=== PATIENT | female | born 1995 | race Caucasian/White ===

== ENCOUNTER 2017-06-08 09:41 | Emergency (ER) | payer OTHER ==
--- NOTE | 2017-06-08 09:48 | ED Physician Documentation ---
General Adult - HISTORIAN Historian: patient - HPI Stated Complaint: abdominal pain Chief Complaint: Abdominal Pain Onset: hours (5) Timing: still present, worse since Severity: moderate Modifying Factors: She states sitting helps some Context: Sharp pain that is LLQ since this am Quality: Sharp Location: LLQ Further Comments: yes (She states she has pain in LLQ since this am. She did start her period this am but states she does not usually have issues with menstrual symptoms. She denies any NVD. Denies a fever. Denies vaginal discharge. She is at [facility] for Meth use.) Last known Well Code/Unknown Code: Unknown - ROS CONST: denies: fever, sweating, weakness EYES/ENT: none CVS/RESP: none GI/: abdominal pain. denies: problems urinating, vomiting, nausea LNMP: 06/08/17 MS/SKIN/LYMPH: none NEURO/PSYCH: denies: headache, fainting - PAST HX Past History: none Other History: none Surgeries/Procedures: none Immunizations: referred to PCP Allergies/Adverse Reactions: Allergies Allergy/AdvReac Type Severity Reaction Status Date / Time No Known Allergies Allergy Verified 06/08/17 09:54 Home Medications: Ambulatory Orders Medication Instructions Recorded NK [NK] 06/08/17 - SOCIAL HX Smoking History: non-smoker Alcohol Use: none Drug Use: methamphetamines (she is 3 weeks in at [facility] for treatment ) - FAMILY HX Family History: No - REVIEWED ASSESSMENTS Nursing Assessment Reviewed: Yes Vitals Reviewed: Yes ED Results Lab/Radiology - Radiology Radiology Impressions: Examination: CT Abdomen/pelvis History: Lower abdominal discomfort Comparison exams: None available Technique: CT Abdomen/pelvis without contrast protocol. Findings: Liver, spleen, adrenal glands, pancreas and gallbladder are without irregularity given exam technique. Faint calyceal calcifications bilaterally. Ureters are not well visualized. Bladder margin without gross abnormality. Abdominal aorta without aneurysm or peripheral atherosclerotic disease. Cardiac silhouette not enlarged. No pericardial effusion. Bowel without contrast limiting evaluation. No evidence for acute mesenteric inflammation or free air. Stool within the large bowel limiting sensitivity. Appendix not visualized. Questionable prominence of the right adnexa/ovary with some peripheral calcifications. Small amount of fluid within the lower pelvic region. Osseous structures appropriate for age. Lung bases without infiltrate. Impression: Faint bilateral nephrolithiasis. Ureters not well visualized. Consider obtaining CT urolithiasis examination with contrast if clinically suspicious for ureteral calcification. No upper abdominal acute inflammatory process. Limited evaluation of the bowel due to technique. No obvious dilation. Large bowel stool - constipation. Likely prominence of the right ovary/adnexa. REGIONAL FACILITIES MANAGER related free fluid. Consider pelvic ultrasound to evaluate if clinically indicated. Electronically signed on Jun 08, 2017 10:56:47 AM GAGGERMAN by: Kevin Joe General Adult Physical Exam - PHYSICAL EXAM GENERAL APPEARANCE: no distress EENT: eye inspection normal RESPIRATORY: no resp distress, chest non-tender, breath sounds normal CVS: reg rate & rhythm, heart sounds normal, equal pulses, no murmur ABDOMEN: soft, normal bowel sounds, tenderness, guarding (LLQ) SKIN: warm/dry, normal color EXTREMITIES: non-tender, normal range of motion, no evidence of injury, no edema NEURO: oriented X3, CN's nml as tested, motor nml, sensation nml Discharge Clincal Impression: Abdominal pain Qualifiers: Abdominal location: left lower quadrant Qualified Code(s): R10.32 - Left lower quadrant pain Referrals: Ramy Delgado MD [Primary Care Provider] - 2 Days Comments: She states she would like to go back to the treatment center due to IV making her feel like she is using the drugs again. Risks identified and she is still wanting to check out against advise of medical advice Condition: Stable Disposition: 07 AGAINST MEDICAL ADVICE Decision to Admit: NO (t) Date of Decison to Admit: 06/08/17 Decision Time: 12:26
[2017-06-08 09:54] VITALS: BP 105/76
[2017-06-08 10:17] LABS: EOSINOPHILS % 3.5 % (0.0-6.8); MEAN CORPUSCULAR HEMOGLOBIN 31.9 pg (28.0-34.0); MEAN CORPUSCULAR VOLUME 94.3 fl (80.0-100.0); MONOCYTES % 8.4 % (0.0-11.0); NEUTROPHILS # 4.7 # k/uL (1.4-7.7)
[2017-06-08 10:35] LABS: eGFR (African) > 60; eGFR (Non-African) > 60
[2017-06-08] MEDS: 0.9 % SODIUM CHLORIDE 1,000 ML IV ONE ×2 (10:41→11:42)
--- NOTE | 2017-06-08 12:57 | Diagnostic Imaging Report ---
MILANA SPRINGER [facility] [address] [facility] [address] [place], [place]. [address] Report Submission Date: Jun 08, 2017 10:56:47 AM DEVELOPMENTAL THERAPIST Patient Study Name: VIVIANA TOMLINSON Date: Jun 08, 2017 10:23:01 AM DEVELOPMENTAL THERAPIST Modality Type: CT\SR Gender: F Description: CT ABD & PELVIS W/O CO : 97 Institution: [facility] Physician: MILANA SPRINGER Examination: CT Abdomen/pelvis History: Lower abdominal discomfort Comparison exams: None available Technique: CT Abdomen/pelvis without contrast protocol. Findings: Liver, spleen, adrenal glands, pancreas and gallbladder are without irregularity given exam technique. Faint calyceal calcifications bilaterally. Ureters are not well visualized. Bladder margin without gross abnormality. Abdominal aorta without aneurysm or peripheral atherosclerotic disease. Cardiac silhouette not enlarged. No pericardial effusion. Bowel without contrast limiting evaluation. No evidence for acute mesenteric inflammation or free air. Stool within the large bowel limiting sensitivity. Appendix not visualized. Questionable prominence of the right adnexa/ovary with some peripheral calcifications. Small amount of fluid within the lower pelvic region. Osseous structures appropriate for age. Lung bases without infiltrate. Impression: Faint bilateral nephrolithiasis. Ureters not well visualized. Consider obtaining CT urolithiasis examination with contrast if clinically suspicious for ureteral calcification. No upper abdominal acute inflammatory process. Limited evaluation of the bowel due to technique. No obvious dilation. Large bowel stool - constipation. Likely prominence of the right ovary/adnexa. 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 Consider pelvic ultrasound to evaluate if clinically indicated. Electronically signed on Jun 08, 2017 10:56:47 AM DEVELOPMENTAL THERAPIST by: Kevin VASQUEZ
[2017-06-09 07:05] LABS: APPEARANCE,URINE CLOUDY (CLEAR); COLOR,URINE AMBER (YELLOW); OCCULT BLOOD,URINE 3+ (NEGATIVE); URINE HCG NEGATIVE (NEGATIVE); UROBILINOGEN URINE 0.2 Eu (0.2-1.0)
== END 2017-06-08 12:26 | disposition left against medical advice (07) ==
LOC: ED 09:41
DX: R10.2 Pelvic and perineal pain (principal); Z53.21 Procedure and treatment not carried out due to patient leaving prior to being seen by health care provider
CPT/HCPCS: 74176; 80053; 85025; J7030; 76830; 81002; 81025; 96360; 99283; S1016